=== PATIENT | female | born 1990 | race African-American/Black ===

== ENCOUNTER 2016-04-15 04:27 | Emergency (ER) | payer SELFPAY ==
[~2016-04-15] VITALS: Ht 177.8 cm; Wt 72.0 kg
[~2016-04-15 04:27] MED LIST: ALBU17I INH; MONOTAB PO
[2016-04-15 04:29] VITALS: BP 121/77; PULSE 95; RESP 16; TEMP 98.5; O2SAT 98
[2016-04-15] MEDS ORDERED: VENTAER INH (05:28)
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
== END 2016-04-15 07:10 | disposition home or self-care (01) ==
LOC: NEPE 04:27
DX: S00.83XA Contusion of other part of head, initial encounter (principal); Z72.0 Tobacco use; F12.90 Cannabis use, unspecified, uncomplicated; Y04.2XXA Assault by strike against or bumped into by another person, initial encounter
CPT/HCPCS: 70486